=== PATIENT | female | born 1995 | race Two or more races ===

== ENCOUNTER 2024-03-04 17:10 | Emergency (ER) | payer BC, MEDICAID ==
[2024-03-04 17:19] VITALS: TEMP 98.8
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
--- NOTE | 2024-03-04 18:27 | DVH ---
EXAM: CT HEAD WITHOUT CONTRAST HISTORY: pain COMPARISON: None TECHNIQUE: Axial images were obtained and reformatted in coronal and sagittal planes. All CT scans at this medical facility are performed using dose modulation techniques as appropriate t o a performed exam including the following: Automated exposure control was utilized; adjustment of th e MA and/or KV according to patient size; and use of iterative reconstruction technique. CT Dose: CTDI volume is 57.89 mGy. Dose-length product is 927.97 mGy*cm FINDINGS: Supratentorial Region: No evidence for large acute territorial ischemia. No intracranial hemorrhage is noted. Posterior Fossa: No acute abnormality. Brainstem: Unremarkable. Sellar/Suprasellar Region: Unremarkable. Ventricles, Cisterns, Sulci: Age-appropriate. Orbits: Unremarkable. Paranasal Sinuses: Mild diffuse sinus mucosal thickening noted reflecting chronic sinusitis. Mastoid Air Cells: Unremarkable. Vasculature: Unremarkable. Bones/Soft Tissues: No acute abnormality. Other: None. IMPRESSION: 1. No acute intracranial process.
[2024-03-04 19:49] VITALS: BP 11/79; PULSE 72; RESP 14; O2SAT 100
== END 2024-03-04 19:55 | disposition home or self-care (01) ==
LOC: ER 17:10
DX: S00.80XA Unspecified superficial injury of other part of head, initial encounter (principal); F12.90 Cannabis use, unspecified, uncomplicated; Z88.8 Allergy status to other drugs, medicaments and biological substances; Z98.890 Other specified postprocedural states; V89.2XXA Person injured in unspecified motor-vehicle accident, traffic, initial encounter; Y93.89 Activity, other specified; Y92.89 Other specified places as the place of occurrence of the external cause; Y99.8 Other external cause status
CPT/HCPCS: 70450